=== PATIENT | female | born 1945 | race Caucasian/White ===

== ENCOUNTER 2018-01-17 13:33 | Emergency (ER) ==
[2018-01-17 13:37] VITALS: BP 176/76; TEMP 99.3; BMI 30.8
--- NOTE | 2018-01-17 16:05 | ED.PDOC ---
General ED Provider: Dr. WOODY BARNEY Chief Complaint: Weakness Stated Complaint: Weakness and nausea; Onset after eatting maldivian food Tuesday with Shrimp Time Seen by Physician: 14:00 Mode of Arrival: Walk-In Information Source: Patient Exam Limitations: No limitations Primary Care Provider: KENYATTA POLLARD Nursing and Triage Documentation Reviewed and Agree: Yes Reviewed sepsis parameters & appropriate labs ordered?: Yes System Inflammatory Response Syndrome: Not Applicable Sepsis Protocol: For patient's 13 years and over: Temp is 96.8 and below OR 101 and greater Pulse >90 BPM Resp >20/minute Acutely Altered Mental Status Are patient's symptoms suggestive of a new infection, such as: -Pneumonia -Skin, Soft Tissue -Endocarditis -UTI -Bone, Joint Infection -Implantable Device -Acute Abdominal Infection -Wound Infection -Meningitis -Blood Stream Catheter Infection -Unknown System Inflammatory Response Syndrome: Not Applicable Review of Systems - Review Of Systems Constitutional: Reports: No symptoms, Chills, Malaise, Weakness, Loss of appetite Eyes: Reports: No symptoms Ears, Nose, Mouth, Throat: Reports: No symptoms Respiratory: Reports: No symptoms Cardiac: Reports: No symptoms GI: Reports: No symptoms, Nausea (stomach queasiness once symptoms started) : Reports: No symptoms, Frequency, Urgency Musculoskeletal: Reports: No symptoms Skin: Reports: No symptoms Neurological: Reports: No symptoms Endocrine: Reports: No symptoms Hematologic/Lymphatic: Reports: No symptoms All Other Systems: Reviewed and Negative Past Medical History - Past Medical History Previously Healthy: Yes Endocrine: Reports: None Cardiovascular: Reports: None, Other (hyperlipidemia) Respiratory: Reports: None Hematological: Reports: None Gastrointestinal: Reports: None Genitourinary: Reports: None Neuro/Psych: Reports: None Musculoskeletal: Reports: None Cancer: Reports: None Last Menstrual Period: n/a - Surgical History General Surgical History: Reports: None - Family History Family History: Reports: None - Social History Smoking Status: Never smoker Hx Substance Use: No Alcohol Screening: Occasionally Physical Exam - Physical Exam Appearance: Ill-appearing, No pain distress, Well-nourished Ill-appearing: Mild Pain Distress: None Eyes: BRYCE, EOMI, Conjunctiva clear ENT: Ears normal, Nose normal, Oropharynx normal Respiratory: Airway patent, Breath sounds clear, Breath sounds equal, Respirations nonlabored Cardiovascular: RRR, Pulses normal, No rub, No murmur GI/: Soft, Nontender, No masses, Bowel sounds normal, No Organomegaly Musculoskeletal: Normal strength, ROM intact, No edema, No calf tenderness Skin: Warm, Dry, Normal color Neurological: Sensation intact, Motor intact, Reflexes intact, Cranial nerves intact, Alert, Oriented Psychiatric: Affect appropriate, Mood appropriate Critical Care Note - Critical Care Note Total Time (mins): 0 Course - Course Hematology/Chemistry: 01/17/18 15:19 01/17/18 15:19 Orders, Labs, Meds: Lab Review 01/17/18 01/17/18 01/17/18 14:58 15:19 15:19 WBC 15.47 H RBC 4.57 Hgb 11.1 L Hct 35.4 L MCV 77.5 L MCH 24.3 L MCHC 31.4 L RDW Coeff of Horace 16.6 H Plt Count 243 Immature Gran % (Auto) 0.4 Neut % (Auto) 84.1 Lymph % (Auto) 8.6 L [place] % (Auto) 6.8 Eos % (Auto) 0.0 Baso % (Auto) 0.1 Immature Gran # (Auto) 0.1 Neut # (Auto) 13.0 H Lymph # (Auto) 1.3 [place] # (Auto) 1.1 Eos # (Auto) 0.0 Baso # (Auto) 0.0 Sodium 138 Potassium 4.6 Chloride 101 Carbon Dioxide 26 Anion Gap 15.6 BUN 15 Creatinine 1.20 Estimated GFR (MDRD) 44.00 BUN/Creatinine Ratio 12.50 Glucose 115 Calcium 9.4 Total Bilirubin 1.0 AST 17 ALT 12 Alkaline Phosphatase 105 Troponin I < 0.0100 Total Protein 7.3 Albumin 3.2 L Globulin 4.1 Albumin/Globulin Ratio 0.78 Urine Color Yellow Urine Clarity Slightly Urine pH 5.5 Ur Specific [place] <=1.005 Urine Protein 1+ Urine Glucose (UA) Negative Urine Ketones Negative Urine Blood 2+ Urine Nitrite Negative Urine Bilirubin Negative Urine Urobilinogen 0.2 Ur Leukocyte Esterase 2+ Urine Microscopic RBC 5-10 Urine Microscopic WBC 30-50 Ur Squamous Epith Cells 2-5 Urine Bacteria 1+ Influ A Molecular Assay Influ B Molecular Assay 01/17/18 15:30 WBC RBC Hgb Hct MCV MCH MCHC RDW Coeff of [place] Plt Count Immature Gran % (Auto) Neut % (Auto) Lymph % (Auto) [place] % (Auto) Eos % (Auto) Baso % (Auto) Immature Gran # (Auto) Neut # (Auto) Lymph # (Auto) [place] # (Auto) Eos # (Auto) Baso # (Auto) Sodium Potassium Chloride Carbon Dioxide Anion Gap BUN Creatinine Estimated GFR (MDRD) BUN/Creatinine Ratio Glucose Calcium Total Bilirubin AST ALT Alkaline Phosphatase Troponin I Total Protein Albumin Globulin Albumin/Globulin Ratio Urine Color Urine Clarity Urine pH Ur Specific [place] Urine Protein Urine Glucose (UA) Urine Ketones Urine Blood Urine Nitrite Urine Bilirubin Urine Urobilinogen Ur Leukocyte Esterase Urine Microscopic RBC Urine Microscopic WBC Ur Squamous Epith Cells Urine Bacteria Influ A Molecular Assay Negative by naat Influ B Molecular Assay Negative by naat Orders Category Date Time Status EKG-(ED ONLY) Stat CARDIO 01/17/18 15:09 Completed CBC W/ AUTO DIFF Stat LAB 01/17/18 15:19 Completed CMP [COMPREHENSIVE METABOLIC PANEL] Stat LAB 01/17/18 15:19 Completed FLU A & B MOLECULAR [FLU A/B MOLECULAR] Stat LAB 01/17/18 15:30 Completed TROPONIN I Stat LAB 01/17/18 15:19 Completed UA [URINALYSIS C & S IF INDICATED] Stat LAB 01/17/18 14:58 Completed URINE CULTURE Stat LAB 01/17/18 15:48 Received Vital Signs: Temp Pulse Resp BP Pulse Ox 01/17/18 13:33 99.3 F 98 H 16 176/76 H 94 L Departure - Departure Time of Disposition: 16:35 Disposition: HOME SELF-CARE Discharge Problem: Weakness, UTI (urinary tract infection), Microcytic hypochromic anemia Instructions: Anemia (ED), Urinary Tract Infection in Women (DC) Condition: Fair Pt referred to PMD for follow-up: Yes (1 week) IPMP verified?: No Additional Instructions: Increase iron rich foods in diet Take daily Iron tablet Feosol Finish antibiotics See PCP in 1 week - 10 days Prescriptions: Nitrofurantoin Monohyd/M-Cryst [Macrobid 100 mg Capsule] 100 mg PO BID #20 capsule Allergies/Adverse Reactions: Allergies No Known Allergies Allergy (Verified 01/17/18 13:37) Home Medications: Ambulatory Orders Aspirin [Aspirin EC] 1 tab PO DAILY 04/01/14 Calcium Carb/Vitamin D3/Vit K1 [Calcium + D Soft Chewable Tab] 1 tab PO DAILY Hydrocodone/Acetaminophen [Lortab 10-325 mg Tablet] 1 tab PO TID 05/10/14 Lansoprazole [Prevacid] 1 tab PO DAILY 05/10/14 Nitrofurantoin Monohyd/M-Cryst [Macrobid 100 mg Capsule] 100 mg PO BID #20 capsule 01/17/18 Simvastatin 40 mg PO BEDTIME 01/17/18 Disposition Discussed With: Patient
== END 2018-01-17 16:59 | disposition home or self-care (01) ==
LOC: ED 13:33
DX: N39.0 Urinary tract infection, site not specified (principal); R53.1 Weakness; D50.9 Iron deficiency anemia, unspecified; E78.5 Hyperlipidemia, unspecified; R53.81 Other malaise; Z79.899 Other long term (current) drug therapy
CPT/HCPCS: 36415; 80053; 81001; 84484; 85025; 87086; 87186; 87502; 93005; 93010; 99283

== ENCOUNTER 2018-01-19 08:29 | Inpatient (IN) ==
[2018-01-19] MEDS ORDERED: PROTONIX IV IVP STA (10:15)
[2018-01-19] MEDS ORDERED: SODIUM CHLORIDE 1,000 ML IV STA (10:15)
[2018-01-19] MEDS ORDERED: ZOFRAN 4 MG/2 ML IVP STA (10:16)
--- NOTE | 2018-01-19 10:19 | ED.PDOC ---
General ED Provider: Dr. WOODY BARNEY Chief Complaint: Weakness Stated Complaint: 4 day history weakness, poor appetitie.sTARTED AFTER EATING PASTA WITH SHRIMP. In the ER Tuesday dx UTI, Rx antibiotic. c/s positive if Ecoli sens to macrobid. Now has developed water diarrea Time Seen by Physician: 08:45 Mode of Arrival: Walk-In Information Source: Patient Exam Limitations: No limitations Primary Care Provider: KENYATTA POLLARD Seen Within Last 72 Hours for Same Complaint By: ED Nursing and Triage Documentation Reviewed and Agree: Yes Reviewed sepsis parameters & appropriate labs ordered?: Yes System Inflammatory Response Syndrome: Not Applicable Sepsis Protocol: For patient's 13 years and over: Temp is 96.8 and below OR 101 and greater Pulse >90 BPM Resp >20/minute Acutely Altered Mental Status Are patient's symptoms suggestive of a new infection, such as: -Pneumonia -Skin, Soft Tissue -Endocarditis -UTI -Bone, Joint Infection -Implantable Device -Acute Abdominal Infection -Wound Infection -Meningitis -Blood Stream Catheter Infection -Unknown System Inflammatory Response Syndrome: Not Applicable Review of Systems - Review Of Systems Constitutional: Reports: No symptoms Eyes: Reports: No symptoms Ears, Nose, Mouth, Throat: Reports: No symptoms Respiratory: Reports: No symptoms Cardiac: Reports: No symptoms GI: Reports: No symptoms, Diarrhea, Difficulty swallowing, Nausea, Poor appetite , Poor fluid intake : Reports: No symptoms, Other (pos urine culture E coli) Musculoskeletal: Reports: No symptoms Skin: Reports: No symptoms Neurological: Reports: No symptoms Endocrine: Reports: No symptoms Hematologic/Lymphatic: Reports: No symptoms All Other Systems: Reviewed and Negative Past Medical History - Past Medical History Previously Healthy: Yes Endocrine: Reports: None Cardiovascular: Reports: None, Other (hyperlipidemia) Respiratory: Reports: None Hematological: Reports: None Gastrointestinal: Reports: None, Other (hx feeling ill past 4 days since eating pasta with shrimp that smelled bad) Genitourinary: Reports: None, UTI Neuro/Psych: Reports: None Musculoskeletal: Reports: None Cancer: Reports: None Last Menstrual Period: NA - Surgical History General Surgical History: Reports: None - Family History Family History: Reports: None - Social History Smoking Status: Never smoker Hx Substance Use: No Alcohol Screening: Occasionally Physical Exam - Physical Exam Appearance: Ill-appearing Ill-appearing: Mild Pain Distress: None Eyes: BRYCE, EOMI, Conjunctiva clear ENT: Ears normal, Nose normal, Oropharynx normal Respiratory: Airway patent, Breath sounds clear, Breath sounds equal, Respirations nonlabored Cardiovascular: RRR, Pulses normal, No rub, No murmur GI/: Soft, No Organomegaly, Tender, Bowel sounds hyperactive Musculoskeletal: Normal strength, ROM intact, No edema, No calf tenderness Skin: Warm, Dry, Normal color Neurological: Sensation intact, Motor intact, Reflexes intact, Cranial nerves intact, Alert, Oriented Psychiatric: Affect appropriate, Mood appropriate Re-Evaluation - Re-Evaluation Time of Re-Evaluation: 12:10 Status: Unchanged Vital Signs Stable: Yes Pain Level: none Appearance: NAD Skin: Warm and Dry Neuro: Alert and Oriented X3 CV: RRR Additional Comments: State just feels bad; Has poor appetite and can not eat normal amout Physician Notification - Case Discussed Physician Notified: Dr Pollard-discussed case and agreed with need to admit Time of Notification: 13:30 Critical Care Note - Critical Care Note Total Time (mins): 0 Course - Course Hematology/Chemistry: 01/23/18 04:45 01/23/18 04:45 Orders, Labs, Meds: Lab Review 01/19/18 01/19/18 01/19/18 10:25 10:27 10:27 WBC 8.21 D RBC 4.27 Hgb 10.2 L Hct 32.7 L MCV 76.6 L MCH 23.9 L MCHC 31.2 L RDW Coeff of Horace 16.6 H Plt Count 199 Immature Gran % (Auto) 0.4 Neut % (Auto) 80.0 Lymph % (Auto) 10.8 [place] % (Auto) 8.6 Eos % (Auto) 0.0 Baso % (Auto) 0.2 Immature Gran # (Auto) 0.0 Neut # (Auto) 6.6 Lymph # (Auto) 0.9 [place] # (Auto) 0.7 Eos # (Auto) 0.0 Baso # (Auto) 0.0 Sodium 137 Potassium 3.6 Chloride 101 Carbon Dioxide 25 Anion Gap 14.6 BUN 16 Creatinine 1.11 Estimated GFR (MDRD) 48.00 BUN/Creatinine Ratio 14.41 Glucose 103 Calcium 8.8 Iron 15 L TIBC 261 % Saturation 6 Unsat Iron Binding 246 Transferrin Total Bilirubin 0.7 AST 26 ALT 16 Alkaline Phosphatase 82 Total Protein 6.3 Albumin 2.6 L Globulin 3.7 Albumin/Globulin Ratio 0.70 TSH Free T4 Urine Color Urine Clarity Urine pH Ur Specific [place] Urine Protein Urine Glucose (UA) Urine Ketones Urine Blood Urine Nitrite Urine Bilirubin Urine Urobilinogen Ur Leukocyte Esterase Urine Microscopic RBC Urine Microscopic WBC Ur Squamous Epith Cells Urine Bacteria Stl Occult Blood (IFOB) Stool Occult Blood #2 Stool Occult Blood #3 Hepatitis A IgM Ab Hep Bs Antigen Hep B Core IgM Ab Hep C Ab Signal/Cutoff 01/19/18 01/19/18 01/19/18 10:27 10:27 10:27 WBC RBC Hgb Hct MCV MCH MCHC RDW Coeff of Horace Plt Count Immature Gran % (Auto) Neut % (Auto) Lymph % (Auto) [place] % (Auto) Eos % (Auto) Baso % (Auto) Immature Gran # (Auto) Neut # (Auto) Lymph # (Auto) [place] # (Auto) Eos # (Auto) Baso # (Auto) Sodium Potassium Chloride Carbon Dioxide Anion Gap BUN Creatinine Estimated GFR (MDRD) BUN/Creatinine Ratio Glucose Calcium Iron TIBC % Saturation Unsat Iron Binding Transferrin 220 Total Bilirubin AST ALT Alkaline Phosphatase Total Protein Albumin Globulin Albumin/Globulin Ratio TSH 0.076 L Free T4 1.18 H Urine Color Urine Clarity Urine pH Ur Specific [place] Urine Protein Urine Glucose (UA) Urine Ketones Urine Blood Urine Nitrite Urine Bilirubin Urine Urobilinogen Ur Leukocyte Esterase Urine Microscopic RBC Urine Microscopic WBC Ur Squamous Epith Cells Urine Bacteria Stl Occult Blood (IFOB) Stool Occult Blood #2 Stool Occult Blood #3 Hepatitis A IgM Ab Negative Hep Bs Antigen Negative Hep B Core IgM Ab Negative Hep C Ab Signal/Cutoff < 0.1 01/19/18 01/19/18 10:55 10:55 WBC RBC Hgb Hct MCV MCH MCHC RDW Coeff of Horace Plt Count Immature Gran % (Auto) Neut % (Auto) Lymph % (Auto) [place] % (Auto) Eos % (Auto) Baso % (Auto) Immature Gran # (Auto) Neut # (Auto) Lymph # (Auto) [place] # (Auto) Eos # (Auto) Baso # (Auto) Sodium Potassium Chloride Carbon Dioxide Anion Gap BUN Creatinine Estimated GFR (MDRD) BUN/Creatinine Ratio Glucose Calcium Iron TIBC % Saturation Unsat Iron Binding Transferrin Total Bilirubin AST ALT Alkaline Phosphatase Total Protein Albumin Globulin Albumin/Globulin Ratio TSH Free T4 Urine Color Yellow Urine Clarity Clear Urine pH 5.5 Ur Specific [place] 1.015 Urine Protein 2+ Urine Glucose (UA) Negative Urine Ketones 1+ Urine Blood 2+ Urine Nitrite Negative Urine Bilirubin Negative Urine Urobilinogen 1.0 Ur Leukocyte Esterase Trace Urine Microscopic RBC 5-10 Urine Microscopic WBC 10-20 Ur Squamous Epith Cells Not present Urine Bacteria 4+ Stl Occult Blood (IFOB) Negative Stool Occult Blood #2 No specimen received Stool Occult Blood #3 No specimen received Hepatitis A IgM Ab Hep Bs Antigen Hep B Core IgM Ab Hep C Ab Signal/Cutoff Orders Category Date Time Status ADMIT PATIENT INPATIENT .TO MEDSURG (MONITORED BED) ADMISSION 01/19/18 12: 34 Active EKG-(ED ONLY) Stat CARDIO 01/19/18 10:13 Completed ACTIVITY .BR with BRP CARE 01/19/18 12:31 Completed ACTIVITY .Early Mobilization for VTE Prevention CARE 01/19/18 12:31 Completed INTAKE & OUTPUT Q8HR CARE 01/19/18 12:30 Completed INTAKE & OUTPUT Q8HR CARE 01/19/18 12:31 Completed INTAKE & OUTPUT Q8HR CARE 01/19/18 12:38 Completed NPO REMINDER: IMAGING ONCE CARE 01/19/18 12:29 Completed TELEMETRY MONITORING TELE CARE 01/19/18 12:35 Completed VITAL SIGNS Q4HR CARE 01/19/18 12:31 Active SOFT DIET DIETARY 01/19/18 Lunch Completed IV [ED IV/MEDIPORT/POWERPORT] .ONCE EMERGENCY 01/20/18 06:00 Active CBC W/ AUTO DIFF DAILY@0600 LAB 01/20/18 04:30 Completed CBC W/ AUTO DIFF DAILY@0600 LAB 01/21/18 04:30 Completed CBC W/ AUTO DIFF Stat LAB 01/19/18 10:27 Completed CMP [COMPREHENSIVE METABOLIC PANEL] Stat LAB 01/19/18 10:27 Completed COMPREHENSIVE METABOLIC PANEL DAILY@0600 LAB 01/20/18 04:30 Completed COMPREHENSIVE METABOLIC PANEL DAILY@0600 LAB 01/21/18 04:30 Completed FREE T4 (FREE THYROXINE) Stat LAB 01/19/18 10:27 Completed HEPATITIS PANEL, ACUTE Stat LAB 01/19/18 10:27 Completed IRON AND TIBC Stat LAB 01/19/18 10:25 Completed OCCULT BLOOD, STOOL LAB 01/20/18 11:30 Completed OCCULT BLOOD, STOOL Stat LAB 01/19/18 10:55 Completed THYROID STIMULATING HORMONE Stat LAB 01/19/18 10:27 Completed TRANSFERRIN Stat LAB 01/19/18 10:27 Completed UA [URINALYSIS C & S IF INDICATED] Stat LAB 01/19/18 10:55 Completed URINE CULTURE Routine LAB 01/19/18 10:55 Completed 0.9 % Sodium Chloride [Saline Flush] MEDS 01/19/18 10:13 Discontinued 1 syr IVF PRN PRN Ceftriaxone Sodium [Rocephin] 1 gm MEDS 01/19/18 13:00 Discontinued 0.9 % Sodium Chloride [Sodium Chloride] 50 ml IV DAILY Enoxaparin Sodium [Lovenox] MEDS 01/19/18 13:00 Discontinued 40 mg SUBCUT DAILY Ondansetron HCl/Pf [Zofran 4 mg/2 ml] MEDS 01/19/18 10:16 Discontinued 4 mg IVP ONCE STA Pantoprazole Sodium [Protonix IV] MEDS 01/19/18 10:15 Discontinued 40 mg IVP ONCE STA Sodium Chloride 0.9% [Sodium Chloride] 1,000 ml MEDS 01/19/18 13:00 Discontinued IV 75 mls/hr Sodium Chloride 0.9% [Sodium Chloride] 1,000 ml MEDS 01/19/18 10:15 Discontinued IV BOLUS RESUSCITATION STATUS Routine OTHERS 01/19/18 12:29 Completed RESUSCITATION STATUS Routine OTHERS 01/19/18 12:31 Completed RESUSCITATION STATUS Routine OTHERS 01/19/18 12:[address] ABDOMEN/PELVIS W/WO CONTRAS Stat RADS 01/19/18 12:26 Completed OT CONSULTATION Routine THERAPIES 01/19/18 11:35 Completed PT CONSULT Routine THERAPIES 01/19/18 16:03 Completed Medications Discontinued Medications Generic Name Dose Route Start Last Admin Trade Name Freq PRN Reason Stop Dose Admin Apixaban 5 mg 01/22/18 12:00 01/23/18 12:26 Eliquis PO 5 mg BID LACI Administration Ceftriaxone Sodium 1 gm 01/21/18 10:00 01/22/18 09:03 Rocephin IM 1 gm DAILY LACI Administration Ceftriaxone Sodium 1 gm 01/22/18 09:30 01/23/18 08:20 Rocephin IM 1 gm DAILY LACI Administration Enoxaparin Sodium 40 mg 01/19/18 13:00 01/22/18 09:05 Lovenox SUBCUT 40 mg DAILY LACI Administration Sodium Chloride 1,000 mls @ 500 mls/hr 01/19/18 10:15 01/19/18 10:48 Sodium Chloride IV 01/19/18 12:14 500 mls/hr BOLUS STA Administration Sodium Chloride 1,000 mls @ 75 mls/hr 01/19/18 13:00 01/21/18 07:19 Sodium Chloride IV 75 mls/hr .[id number] LACI Administration Ceftriaxone Sodium 1 gm/ 50 mls @ 75 mls/hr 01/19/18 13:00 01/22/18 09:04 Sodium Chloride IV Not Given DAILY LACI Lidocaine HCl 2.1 ml 01/21/18 09:45 01/21/18 10:24 Lidocaine Hcl 1% Sdv IM 01/21/18 09:46 2.1 ml ONCE STA Administration Lidocaine HCl 2.1 ml 01/22/18 09:16 01/23/18 08:21 Lidocaine Hcl 1% Sdv IM 2.1 ml DAILY LACI Administration Ondansetron HCl 4 mg 01/19/18 10:16 01/19/18 10:49 Zofran 4 Mg/2 Ml IVP 01/19/18 10:17 4 mg ONCE STA Administration Pantoprazole Sodium 40 mg 01/19/18 10:15 01/19/18 10:53 Protonix Iv IVP 01/19/18 10:16 40 mg ONCE STA Administration Sodium Chloride 1 syr 01/19/18 10:13 01/19/18 10:48 Saline Flush IVF 1 syr PRN PRN Administration To flush IV Vital Signs: Temp Pulse Resp BP Pulse Ox 01/19/18 08:33 100.0 F H 95 H 18 150/81 H 94 L Departure - Departure Time of Disposition: 12:35 Disposition: ADMITTED INPATIENT Discharge Problem: UTI (urinary tract infection), bacterial, Anorexia, Anemia, iron deficiency, Diarrhea Condition: Good Pt referred to PMD for follow-up: Yes (Dr Pollard) IPMP verified?: No Allergies/Adverse Reactions: Allergies No Known Allergies Allergy (Verified 01/19/18 08:32) Home Medications: Ambulatory Orders Aspirin [Aspirin EC] 1 tab PO DAILY 04/01/14 Calcium Carb/Vitamin D3/Vit K1 [Calcium + D Soft Chewable Tab] 1 tab PO DAILY Hydrocodone/Acetaminophen [Lortab 10-325 mg Tablet] 1 tab PO TID 05/10/14 Simvastatin 40 mg PO BEDTIME 01/17/18 Iron,Carbonyl [Feosol] 45 mg PO DAILY 01/19/18 Apixaban [Eliquis] 5 mg PO BID #60 tablet 01/23/18 Cephalexin [Keflex] 500 mg PO Q8HR #21 capsule 01/23/18 Pantoprazole Sodium [Protonix] 40 mg PO QDAC #30 tablet. 01/23/18 Disposition Discussed With: Patient, Family (Discussed with Dr Pollard requests patient to be admitted; IV antibiotics ) GI Complaint Exam - Vomiting/Diarrhea Complaint/Exam Onset/Duration: 1wk Episodes of Vomiting over last 24 Hours: 0 (Nausea, dyspepsia) Episodes of Diarrhea Over Last 24 Hours: 5 (dark, thick,pasty, malodorous) Initial Severity: Moderate Current Severity: Moderate Character of Diarrhea: Reports: Watery, Malodorous Aggravating: Reports: Liquids Alleviating: Reports: None Associated Signs and Symptoms: Reports: Dizziness, Light-headedness, Cramping Related History: Reports: Recent antibiotics Last Oral Intake: today Last Bowel Movement: 1 hr ago Related Surgical History: Reports: None Abdominal Findings: Present: Abdominal distention (tenderness) Differential Diagnoses: Gastritis, UTI, Other (GI Bleeding)
[2018-01-19] MEDS ORDERED: ROCEPHIN ONE (13:11)
[2018-01-19] MEDS: ROCEPHIN 1 GM in SODIUM CHLORIDE 50 ML IV SCH (13:27)
[2018-01-19] MEDS: LOVENOX SUBCUT SCH (13:27)
[2018-01-19] MEDS: SODIUM CHLORIDE 1,000 ML IV SCH (13:34)
[2018-01-19 14:33] VITALS: BMI 31.0
--- NOTE | 2018-01-19 15:29 | CT ---
Exam: CT abdomen pelvis without intravenous contrast followed by CT abdomen pelvis with intravenous c ontrast. Comparison: None available. Reason for exam: Fatigue lack of appetite. FINDINGS: There is a large hiatal hernia seen within the thorax with the stomach and pancreas seen w ithin the thorax. No pleural effusion in the partially imaged lung bases. The liver is lower in attenuation than the spleen. A stone is seen within the dependent portion of the gallbladder without obvious wall thickening. The adrenal glands and splenic parenchyma appear grossly unremarkable. No hydronephrosis or hydroureter within the imaged portions of the [id number] collecting systems. Evaluation of the pelvic structures is limited by metallic streak artifact from a left hip arthropla sty. No focal small bowel dilatation is seen. The appendix is unremarkable. Diverticular disease is seen in the rectosigmoid without obvious surrounding inflammatory change. The bladder is incompletely evaluated secondary to streak artifact. Degenerative disease is seen in the lumbosacral spine with vacuum disc phenomenon. No suspicious fariba earing osteoblastic or osteolytic lesions. Impression: 1. Large hiatal hernia with the stomach and pancreas seen within the thoracic cavity. 2. No acute inflammatory findings are seen within the abdomen . 3. Evaluation of the pelvis is limited by streak artifact from a left hip arthroplasty. 4. Cholelithiasis without evidence of cholecystitis. Report faxed at [id number] hours on 01/19/2018
[2018-01-20] MEDS: SODIUM CHLORIDE 1,000 ML IV SCH ×2 (02:43→17:50)
--- NOTE | 2018-01-20 09:23 | PCM.PROG ---
Attending Provider: ATTENDING PROVIDER: Dr. KENYATTA POLLARD This patient is seen with Rosa Isela Aquino, Nurse Practitioner. DATE OF SERVICE: 01/20/18 SUBJECTIVE: This 72 year old WHITE/ F was hospitalized 01/19/18. The patient is sitting in chair, alert. Denies any pain. The patient is scheduled for upper GI today. She is feeling some better, no fever. REVIEW OF SYSTEMS: CONSTITUTIONAL: Fatigue and weakness. No night sweats. No malaise, lethargy. No fever or chills. HEENT: Eyes: No visual changes. No eye pain. No eye discharge. ENT: No runny nose. No epistaxis. No sinus pain. No odynophagia. No congestion. RESPIRATORY: No cough, no congestion. No hemoptysis. No shortness of breath. CARDIOVASCULAR: No angina symptoms. No CHF symptoms. No atypical chest pain for CAD. No palpitations. No orthopnea.. GASTROINTESTINAL: No abdominal pain. No nausea or vomiting. No diarrhea or constipation. No hematemesis. No hematochezia. GENITOURINARY: No urgency. No frequency. No dysuria. No hematuria. No obstructive symptoms. No discharge. No pain. No significant abnormal bleeding. MUSCULOSKELETAL: No musculoskeletal pain; no joint swelling. NEUROLOGICAL: Awake, alert, oriented to time, place and person. No headache. No neck pain. No syncope. No seizures. No dizziness. PSYCHIATRIC: Not anxious. No depression. No suicidal thoughts. No homicidal thoughts. SKIN: No rash. No lesions. No wounds. ENDOCRINE: No unexplained weight loss. No weight gain. HEMATOLOGIC/LYMPHATIC: No anemia. No purpura. No petechiae. No prolonged or excessive bleeding. No palpable lymph nodes. PHYSICAL EXAMINATION: GENERAL: The patient is awake, alert and oriented, sitting in chair in no distress. VITAL SIGNS: Temperature 98.7 F, Pulse 72, Respiratory Rate 18, BP 125/73, Pulse Ox 96% HEENT: Head normocephalic, atraumatic. Eyes: Extraocular muscles are intact. Pupils are equal, round and reactive to light and accommodation. Ears: No lesions. Nose appeared normal. Throat: No exudate or erythema. NECK: Supple. No JVD, no carotid bruit. No lymphadenopathy or thyromegaly. LUNGS: Clear to auscultation. Percussion note normal. Chest symmetrical. HEART: S1, S2, no S3. No murmurs. No cyanosis or clubbing. No ascites. Pulses: Dorsalis pedis and posterior tibial pulses +1 to +2 both sides. ABDOMEN: Soft. Non-tender. Bowel sounds active. No CVA tenderness. No mass felt. EXTREMITIES: No edema. Full range of motion of all extremities, equal. NEUROLOGIC: No focal deficit. Cranial nerves II through XII are grossly intact. No headache, no double vision or headache. SKIN: Not dry. Intact. Turgor-normal. LYMPHATIC: No palpable lymph nodes/no lymphedema. MUSCULOSKELETAL: Normal joints with no swelling. Muscle tone is normal. LAB REVIEW: 01/20/18 04:30 01/20/18 04:30 01/20/18 04:30: Sodium 139, Potassium 3.8, Chloride 106, Carbon Dioxide 24, Anion Gap 12.8, BUN 11, Creatinine 0.93, Estimated GFR (MDRD) 59.00, BUN/ Creatinine Ratio 11.82, Glucose 91, Calcium 8.4, Total Bilirubin 0.4, AST 34, ALT 23, Alkaline Phosphatase 73, Total Protein 5.6 L, Albumin 2.3 L, Globulin 3.3, Albumin/Globulin Ratio 0.70 01/20/18 04:30: WBC 6.78, RBC 4.06 L, Hgb 9.7 L, Hct 31.4 L, MCV 77.3 L, MCH 23.9 L, MCHC 30.9 L, RDW Coeff of Horace 16.5 H, Plt Count 173, Immature Gran % ( Auto) 0.3, Neut % (Auto) 67.2, Lymph % (Auto) 16.5, [place] % (Auto) 14.7 H, Eos % (Auto) 0.6, Baso % (Auto) 0.7, Immature Gran # (Auto) 0.0, Neut # (Auto) 4.6, Lymph # (Auto) 1.1, [place] # (Auto) 1.0, Eos # (Auto) 0.0, Baso # (Auto) 0.1 01/19/18 10:55: Stl Occult Blood (IFOB) Negative, Stool Occult Blood #2 No specimen received, Stool Occult Blood #3 No specimen received 01/19/18 10:55: Urine Color Yellow, Urine Clarity Clear, Urine pH 5.5, Ur Specific [place] 1.015, Urine Protein 2+, Urine Glucose (UA) Negative, Urine Ketones 1+, Urine Blood 2+, Urine Nitrite Negative, Urine Bilirubin Negative, Urine Urobilinogen 1.0, Ur Leukocyte Esterase Trace, Urine Microscopic RBC 5-10 , Urine Microscopic WBC 10-20, Ur Squamous Epith Cells Not present, Urine Bacteria 4+ 01/19/18 10:27: TSH 0.076 L, Free T4 1.18 H 01/19/18 10:27: Hepatitis A IgM Ab Negative, Hep Bs Antigen Negative, Hep B Core IgM Ab Negative, Hep C Ab Signal/Cutoff < 0.1 01/19/18 10:27: Transferrin 220 01/19/18 10:27: Sodium 137, Potassium 3.6, Chloride 101, Carbon Dioxide 25, Anion Gap 14.6, BUN 16, Creatinine 1.11, Estimated GFR (MDRD) 48.00, BUN/ Creatinine Ratio 14.41, Glucose 103, Calcium 8.8, Total Bilirubin 0.7, AST 26, ALT 16, Alkaline Phosphatase 82, Total Protein 6.3, Albumin 2.6 L, Globulin 3.7 , Albumin/Globulin Ratio 0.70 01/19/18 10:27: WBC 8.21 D, RBC 4.27, Hgb 10.2 L, Hct 32.7 L, MCV 76.6 L, MCH 23.9 L, MCHC 31.2 L, RDW Coeff of Horace 16.6 H, Plt Count 199, Immature Gran % ( Auto) 0.4, Neut % (Auto) 80.0, Lymph % (Auto) 10.8, [place] % (Auto) 8.6, Eos % ( Auto) 0.0, Baso % (Auto) 0.2, Immature Gran # (Auto) 0.0, Neut # (Auto) 6.6, Lymph # (Auto) 0.9, [place] # (Auto) 0.7, Eos # (Auto) 0.0, Baso # (Auto) 0.0 01/19/18 10:25: Iron 15 L, TIBC 261, % Saturation 6, Unsat Iron Binding 246 ASSESSMENT: 1. ACUTE UTI 2. ANEMIA 3. FATIGUE/WEAKNESS PLAN: 1. CONTINUE IV ANTIBIOTIC 2. UPPER GI TODAY Plan and coordination of the patient's care discussed in the presence of Title Supervisor and nurse. CONDITION: Stable SCRIBED BY: PARVEEN CAMPOS Pm Technician scribed while in presence of service performed by Dr. Pollard/Rosa Isela Aquino APRN on 01/20/18 ([id number])
[2018-01-20] MEDS: LOVENOX SUBCUT SCH (10:50)
[2018-01-20] MEDS: ROCEPHIN 1 GM in SODIUM CHLORIDE 50 ML IV SCH (10:50)
--- NOTE | 2018-01-20 14:14 | HP ---
DATE OF SERVICE: 01/19/18 HISTORY OF PRESENT ILLNESS: This is a 72-year-old white female who has a four day history of weakness and poor appetite. She was seen in the emergency room about two days ago and was diagnosed with a urinary tract infection. She was given a prescription for Macrobid. The urine sensitivity came back and is sensitive to Macrobid however she still reports feeling weak, having dysuria, low grade fever and nauseated. 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 She sees Dr. 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 Carbajal Last mammogram 03/18 - the patient declined a mammogram this year REVIEW OF SYSTEMS: CONSTITUTIONAL: Weakness. No night sweats. No fatigue, malaise, lethargy. Positive for fever and chills. HEENT: Eyes: No visual changes. No eye pain. No eye discharge. ENT: No runny nose. No epistaxis. No sinus pain. No sore throat. No odynophagia. No ear pain. No congestion. RESPIRATORY: No cough, no congestion. No hemoptysis. No shortness of breath. CARDIOVASCULAR: No angina symptoms. No CHF symptoms. No atypical chest pain for CAD. No palpitations. No orthopnea. GASTROINTESTINAL: Nausea. Decreased appetite. No abdominal pain. No vomiting. No diarrhea or constipation. No hematemesis. No hematochezia. GENITOURINARY: Dysuria. No urgency. No frequency. No hematuria. No obstructive symptoms. No discharge. No pain. No significant abnormal bleeding. MUSCULOSKELETAL: No musculoskeletal pain. No joint swelling. No arthritis. NEUROLOGICAL: No headache. No neck pain. No syncope. No seizures. No dizziness. PSYCHIATRIC: Not anxious. No depression. No suicidal thoughts. No homicidal thoughts. SKIN: No rash. No lesions. No wounds. ENDOCRINE: No unexplained weight loss. No weight gain. HEMATOLOGIC/LYMPHATIC: No anemia. No purpura. No petechiae. No prolonged or excessive bleeding. No palpable lymph nodes. PERSONAL/FAMILY/SOCIAL HISTORY: The patient is . She lives at home with her . Nonsmoker. No alcohol or ilicit drug use. MEDICATIONS: (Home) 1. Aspirin 81 mg p.o. daily 2. Prevacid 30 mg one tablet p.o. daily 3. Hydrocodone/Acetaminophen one tab p.o. t.i.d. 4. Calcium Carb/Vitamin D3/Vitamin K1 one tab p.o. daily 5. Simvastatin 40 mg p.o. bedtime 6. Nitrofurantoin (Macrobid) 100 mg p.o. b.i.d. 7. Iron 45 mg p.o. daily ALLERGIES: NKDA PHYSICAL EXAMINATION: VITAL SIGNS: Temperature 100, heart rate 95, respirations 18, BP 150/81, oxygen 94%. HEENT: Head normocephalic, atraumatic. Eyes: Extraocular muscles are intact. Pupils are equal, round and reactive to light and accommodation. Ears: No lesions. Nose appeared normal. Throat: No exudate or erythema. NECK: Supple. No JVD, no carotid bruit. No lymphadenopathy or thyromegaly. LUNGS: Clear to auscultation. Percussion note normal. Chest symmetrical. HEART: S1, S2, no S3. No murmurs. No cyanosis or clubbing. No ascites. Pulses: Dorsalis pedis and posterior tibial pulses +1 to +2 both sides. ABDOMEN: Soft. Nontender. Bowel sounds active. No CVA tenderness. No mass felt. EXTREMITIES: No edema. Full range of motion of all extremities, equal. NEUROLOGIC: No focal deficit. Cranial nerves II through XII are grossly intact. No headache, no double vision or headache. SKIN: Not dry. Intact. Turgor - normal. LYMPHATIC: No palpable lymph nodes/no lymphedema. MUSCULOSKELETAL: Normal joints with no swelling. Muscle tone is normal. LABS: White count 8.21, hemoglobin 10.2, hematocrit 32.7, platelets 199. Sodium 137, potassium 3.6, BUN 16, creatinine 1.11, glucose 103, iron 15, TIBC 261, saturations 6, unsaturated iron binding capacity 246, AST 26, ALT 16, alkaline phosphatase 82, total protein 6.3, albumin 2.6. Urine is clear. pH 5.5, 2+ protein, 1+ ketones, 2+ blood, 4+ bacteria. Stool for occult blood is negative. ASSESSMENT: 1. ACUTE URINARY TRACT INFECTION 2. ANEMIA 3. IRON DEFICIENCY 4. FEVER PLAN: 1. Admit to the floor 2. Routine telemetry orders 3. No cardiac enzymes 4. Start IV fluids D5 1/2 NS at 75 cc/hr 5. Zofran 4 mg IV q.6hr p.r.n. for nausea 6. Rocephin 1 gm IV daily 7. Continue home medications 8. Regular diet 9. CBC/CMP daily 10. Tylenol 650 as needed for fever 11. Chest x-ray 12. Will follow closely 13. Regular diet TIME SPENT: More than 70 minutes. MTDD
--- NOTE | 2018-01-20 14:15 | PN ---
DATE OF SERVICE: 01/19/18 SUBJECTIVE: The patient was seen in the emergency room along with ER physician. She is a 72 year old white female being treated for UTI. Started in the emergency room a few days ago with e-coli. The patient has been on Macrobid. The patient's nausea continued along with loss of appetite. She is really feeling weak and tired, also feels hot and cold. She was seen again and the urine still shows 2+ blood and trace esterase with 4+ bacteria. The patient is dehydrated, anemic with low albumin. She will be put on hospital with IV fluids and IV antibiotics. The patient's cardiovascular status is stable. CONDITION: Stable. TIME SPENT: More than 30 minutes. Plan and coordination of the patient's care discussed in the presence of nurse. BLANCA
[2018-01-21] MEDS: SODIUM CHLORIDE 1,000 ML IV SCH (07:19)
[2018-01-21] MEDS: LOVENOX SUBCUT SCH (08:52)
[2018-01-21] MEDS ORDERED: LIDOCAINE HCL 1% SDV IM STA (09:45)
[2018-01-21] MEDS: ROCEPHIN 1 GM in SODIUM CHLORIDE 50 ML IV SCH (10:23)
[2018-01-21] MEDS: ROCEPHIN IM SCH (10:25)
[2018-01-22] MEDS: ROCEPHIN IM SCH ×2 (09:03→10:13)
[2018-01-22] MEDS: ROCEPHIN 1 GM in SODIUM CHLORIDE 50 ML IV SCH (09:04)
[2018-01-22] MEDS: LOVENOX SUBCUT SCH (09:05)
[2018-01-22] MEDS: LIDOCAINE HCL 1% SDV IM SCH (09:05)
[2018-01-22] MEDS: ELIQUIS PO SCH ×2 (12:36→21:22)
--- NOTE | 2018-01-22 21:33 | ED.PDOC ---
General ED Provider: Dr. WOODY BARNEY Chief Complaint: Weakness Stated Complaint: weakness, fatigue and symptoms Time Seen by Physician: 08:50 Mode of Arrival: Walk-In Information Source: Patient Exam Limitations: No limitations Primary Care Provider: KENYATTA POLLARD Referred to ED by: PCP Seen Within Last 72 Hours for Same Complaint By: ED Nursing and Triage Documentation Reviewed and Agree: Yes Reviewed sepsis parameters & appropriate labs ordered?: Yes System Inflammatory Response Syndrome: Not Applicable Sepsis Protocol: For patient's 13 years and over: Temp is 96.8 and below OR 101 and greater Pulse >90 BPM Resp >20/minute Acutely Altered Mental Status Are patient's symptoms suggestive of a new infection, such as: -Pneumonia -Skin, Soft Tissue -Endocarditis -UTI -Bone, Joint Infection -Implantable Device -Acute Abdominal Infection -Wound Infection -Meningitis -Blood Stream Catheter Infection -Unknown System Inflammatory Response Syndrome: Not Applicable Complaint Exam - UTI Female Complaint/Exam Patient Complains of: Denies: Painful urination Symptoms Are: Still present Timing: Constant Initial Severity: Moderate Current Severity: Mild Location of Pain: Reports: None Associated Signs and Symptoms: Reports: Chills CVA Tenderness: No Suprapubic Tenderness: Yes Differential Diagnoses: Bladder Dysfunction, Cystitis, Pyelonephritis, Ureteral Calculus Review of Systems - Review Of Systems Constitutional: Reports: No symptoms, Chills, Malaise, Weakness Eyes: Reports: No symptoms Ears, Nose, Mouth, Throat: Reports: No symptoms Respiratory: Reports: No symptoms Cardiac: Reports: No symptoms GI: Reports: No symptoms : Reports: No symptoms, Burning, Dysuria Musculoskeletal: Reports: No symptoms Skin: Reports: No symptoms Neurological: Reports: No symptoms Endocrine: Reports: No symptoms Hematologic/Lymphatic: Reports: No symptoms All Other Systems: Reviewed and Negative Past Medical History - Past Medical History Previously Healthy: Yes Endocrine: Reports: None Cardiovascular: Reports: None, Other (hyperlipidemia) Respiratory: Reports: None Hematological: Reports: None Gastrointestinal: Reports: None Genitourinary: Reports: None Neuro/Psych: Reports: None Musculoskeletal: Reports: None Cancer: Reports: None Last Menstrual Period: NA - Surgical History General Surgical History: Reports: None - Family History Family History: Reports: None - Social History Smoking Status: Never smoker Hx Substance Use: No Alcohol Screening: Occasionally Physical Exam - Physical Exam Appearance: Well-appearing, Ill-appearing, No pain distress, Well-nourished, Thin Ill-appearing: Mild Pain Distress: None Eyes: BRYCE, EOMI, Conjunctiva clear ENT: Ears normal, Nose normal, Oropharynx normal Respiratory: Airway patent, Breath sounds clear, Breath sounds equal, Respirations nonlabored Cardiovascular: RRR, Pulses normal, No rub, No murmur GI/: Soft, No masses, Bowel sounds normal, No Organomegaly, Tender Musculoskeletal: Normal strength, ROM intact, No edema, No calf tenderness Skin: Warm, Dry, Normal color Neurological: Sensation intact, Motor intact, Reflexes intact, Cranial nerves intact, Alert, Oriented Psychiatric: Affect appropriate, Mood appropriate Critical Care Note - Critical Care Note Total Time (mins): 60 Course - Course Hematology/Chemistry: 01/22/18 04:30 01/22/18 04:30 Orders, Labs, Meds: Lab Review 01/19/18 01/19/18 01/19/18 10:25 10:27 10:27 WBC 8.21 D RBC 4.27 Hgb 10.2 L Hct 32.7 L MCV 76.6 L MCH 23.9 L MCHC 31.2 L RDW Coeff of Horace 16.6 H Plt Count 199 Immature Gran % (Auto) 0.4 Neut % (Auto) 80.0 Lymph % (Auto) 10.8 [place] % (Auto) 8.6 Eos % (Auto) 0.0 Baso % (Auto) 0.2 Immature Gran # (Auto) 0.0 Neut # (Auto) 6.6 Lymph # (Auto) 0.9 [place] # (Auto) 0.7 Eos # (Auto) 0.0 Baso # (Auto) 0.0 Sodium 137 Potassium 3.6 Chloride 101 Carbon Dioxide 25 Anion Gap 14.6 BUN 16 Creatinine 1.11 Estimated GFR (MDRD) 48.00 BUN/Creatinine Ratio 14.41 Glucose 103 Calcium 8.8 Iron 15 L TIBC 261 % Saturation 6 Unsat Iron Binding 246 Transferrin Total Bilirubin 0.7 AST 26 ALT 16 Alkaline Phosphatase 82 Total Protein 6.3 Albumin 2.6 L Globulin 3.7 Albumin/Globulin Ratio 0.70 TSH Free T4 Urine Color Urine Clarity Urine pH Ur Specific [place] Urine Protein Urine Glucose (UA) Urine Ketones Urine Blood Urine Nitrite Urine Bilirubin Urine Urobilinogen Ur Leukocyte Esterase Urine Microscopic RBC Urine Microscopic WBC Ur Squamous Epith Cells Urine Bacteria Stl Occult Blood (IFOB) Stool Occult Blood #2 Stool Occult Blood #3 Hepatitis A IgM Ab Hep Bs Antigen Hep B Core IgM Ab Hep C Ab Signal/Cutoff 01/19/18 01/19/18 01/19/18 10:27 10:27 10:27 WBC RBC Hgb Hct MCV MCH MCHC RDW Coeff of Horace Plt Count Immature Gran % (Auto) Neut % (Auto) Lymph % (Auto) [place] % (Auto) Eos % (Auto) Baso % (Auto) Immature Gran # (Auto) Neut # (Auto) Lymph # (Auto) [place] # (Auto) Eos # (Auto) Baso # (Auto) Sodium Potassium Chloride Carbon Dioxide Anion Gap BUN Creatinine Estimated GFR (MDRD) BUN/Creatinine Ratio Glucose Calcium Iron TIBC % Saturation Unsat Iron Binding Transferrin 220 Total Bilirubin AST ALT Alkaline Phosphatase Total Protein Albumin Globulin Albumin/Globulin Ratio TSH 0.076 L Free T4 1.18 H Urine Color Urine Clarity Urine pH Ur Specific [place] Urine Protein Urine Glucose (UA) Urine Ketones Urine Blood Urine Nitrite Urine Bilirubin Urine Urobilinogen Ur Leukocyte Esterase Urine Microscopic RBC Urine Microscopic WBC Ur Squamous Epith Cells Urine Bacteria Stl Occult Blood (IFOB) Stool Occult Blood #2 Stool Occult Blood #3 Hepatitis A IgM Ab Negative Hep Bs Antigen Negative Hep B Core IgM Ab Negative Hep C Ab Signal/Cutoff < 0.1 01/19/18 01/19/18 10:55 10:55 WBC RBC Hgb Hct MCV MCH MCHC RDW Coeff of Horace Plt Count Immature Gran % (Auto) Neut % (Auto) Lymph % (Auto) [place] % (Auto) Eos % (Auto) Baso % (Auto) Immature Gran # (Auto) Neut # (Auto) Lymph # (Auto) [place] # (Auto) Eos # (Auto) Baso # (Auto) Sodium Potassium Chloride Carbon Dioxide Anion Gap BUN Creatinine Estimated GFR (MDRD) BUN/Creatinine Ratio Glucose Calcium Iron TIBC % Saturation Unsat Iron Binding Transferrin Total Bilirubin AST ALT Alkaline Phosphatase Total Protein Albumin Globulin Albumin/Globulin Ratio TSH Free T4 Urine Color Yellow Urine Clarity Clear Urine pH 5.5 Ur Specific [place] 1.015 Urine Protein 2+ Urine Glucose (UA) Negative Urine Ketones 1+ Urine Blood 2+ Urine Nitrite Negative Urine Bilirubin Negative Urine Urobilinogen 1.0 Ur Leukocyte Esterase Trace Urine Microscopic RBC 5-10 Urine Microscopic WBC 10-20 Ur Squamous Epith Cells Not present Urine Bacteria 4+ Stl Occult Blood (IFOB) Negative Stool Occult Blood #2 No specimen received Stool Occult Blood #3 No specimen received Hepatitis A IgM Ab Hep Bs Antigen Hep B Core IgM Ab Hep C Ab Signal/Cutoff Orders Category Date Time Status ADMIT PATIENT INPATIENT .TO MEDSUR (MONITORED BED) ADMISSION 01/19/18 12: 34 Active EKG-(ED ONLY) Stat CARDIO 01/19/18 10:13 Completed ACTIVITY .BR with BRP CARE 01/19/18 12:31 Completed ACTIVITY .Early Mobilization for VTE Prevention CARE 01/19/18 12:31 Completed INTAKE & OUTPUT Q8HR CARE 01/19/18 12:30 Completed INTAKE & OUTPUT Q8HR CARE 01/19/18 12:31 Completed INTAKE & OUTPUT Q8HR CARE 01/19/18 12:38 Active NPO REMINDER: IMAGING ONCE CARE 01/19/18 12:29 Completed TELEMETRY MONITORING TELE CARE 01/19/18 12:35 Completed VITAL SIGNS Q4HR CARE 01/19/18 12:31 Active SOFT DIET DIETARY 01/19/18 Lunch Ordered IV [ED IV/MEDIPORT/POWERPORT] .ONCE EMERGENCY 01/20/18 06:00 Active CBC W/ AUTO DIFF DAILY@0600 LAB 01/20/18 04:30 Completed CBC W/ AUTO DIFF DAILY@0600 LAB 01/21/18 04:30 Completed CBC W/ AUTO DIFF Stat LAB 01/19/18 10:27 Completed CMP [COMPREHENSIVE METABOLIC PANEL] Stat LAB 01/19/18 10:27 Completed COMPREHENSIVE METABOLIC PANEL DAILY@0600 LAB 01/20/18 04:30 Completed COMPREHENSIVE METABOLIC PANEL DAILY@0600 LAB 01/21/18 04:30 Completed FREE T4 (FREE THYROXINE) Stat LAB 01/19/18 10:27 Completed HEPATITIS PANEL, ACUTE Stat LAB 01/19/18 10:27 Completed IRON AND TIBC Stat LAB 01/19/18 10:25 Completed OCCULT BLOOD, STOOL LAB 01/20/18 11:30 Completed OCCULT BLOOD, STOOL Stat LAB 01/19/18 10:55 Completed THYROID STIMULATING HORMONE Stat LAB 01/19/18 10:27 Completed TRANSFERRIN Stat LAB 01/19/18 10:27 Completed UA [URINALYSIS C & S IF INDICATED] Stat LAB 01/19/18 10:55 Completed URINE CULTURE Routine LAB 01/19/18 10:55 Completed 0.9 % Sodium Chloride [Saline Flush] MEDS 01/19/18 10:13 Discontinued 1 syr IVF PRN PRN Ceftriaxone Sodium [Rocephin] 1 gm MEDS 01/19/18 13:00 Discontinued 0.9 % Sodium Chloride [Sodium Chloride] 50 ml IV DAILY Enoxaparin Sodium [Lovenox] MEDS 01/19/18 13:00 Discontinued 40 mg SUBCUT DAILY Ondansetron HCl/Pf [Zofran 4 mg/2 ml] MEDS 01/19/18 10:16 Discontinued 4 mg IVP ONCE STA Pantoprazole Sodium [Protonix IV] MEDS 01/19/18 10:15 Discontinued 40 mg IVP ONCE STA Sodium Chloride 0.9% [Sodium Chloride] 1,000 ml MEDS 01/19/18 13:00 Discontinued IV 75 mls/hr Sodium Chloride 0.9% [Sodium Chloride] 1,000 ml MEDS 01/19/18 10:15 Discontinued IV BOLUS RESUSCITATION STATUS Routine OTHERS 01/19/18 12:29 Completed RESUSCITATION STATUS Routine OTHERS 01/19/18 12:31 Completed RESUSCITATION STATUS Routine OTHERS 01/19/18 12:[address] ABDOMEN/PELVIS W/WO CONTRAS Stat RADS 01/19/18 12:26 Completed OT CONSULTATION Routine THERAPIES 01/19/18 11:35 Completed PT CONSULT Routine THERAPIES 01/19/18 16:03 Completed Medications Generic Name Dose Route Start Last Admin Trade Name Freq PRN Reason Stop Dose Admin Apixaban 5 mg 01/22/18 12:00 01/22/18 21:22 Eliquis PO 5 mg BID LACI Administration Ceftriaxone Sodium 1 gm 01/22/18 09:30 01/22/18 10:13 Rocephin IM Not Given DAILY LACI Lidocaine HCl 2.1 ml 01/22/18 09:16 01/22/18 09:05 Lidocaine Hcl 1% Sdv IM 2.1 ml DAILY LACI Administration Discontinued Medications Generic Name Dose Route Start Last Admin Trade Name Freq PRN Reason Stop Dose Admin Ceftriaxone Sodium 1 gm 01/21/18 10:00 01/22/18 09:03 Rocephin IM 1 gm DAILY LACI Administration Enoxaparin Sodium 40 mg 01/19/18 13:00 01/22/18 09:05 Lovenox SUBCUT 40 mg DAILY LACI Administration Sodium Chloride 1,000 mls @ 500 mls/hr 01/19/18 10:15 01/19/18 10:48 Sodium Chloride IV 01/19/18 12:14 500 mls/hr BOLUS STA Administration Sodium Chloride 1,000 mls @ 75 mls/hr 01/19/18 13:00 01/21/18 07:19 Sodium Chloride IV 75 mls/hr .[id number] LACI Administration Ceftriaxone Sodium 1 gm/ 50 mls @ 75 mls/hr 01/19/18 13:00 01/22/18 09:04 Sodium Chloride IV Not Given DAILY LACI Lidocaine HCl 2.1 ml 01/21/18 09:45 01/21/18 10:24 Lidocaine Hcl 1% Sdv IM 01/21/18 09:46 2.1 ml ONCE STA Administration Ondansetron HCl 4 mg 01/19/18 10:16 01/19/18 10:49 Zofran 4 Mg/2 Ml IVP 01/19/18 10:17 4 mg ONCE STA Administration Pantoprazole Sodium 40 mg 01/19/18 10:15 01/19/18 10:53 Protonix Iv IVP 01/19/18 10:16 40 mg ONCE STA Administration Sodium Chloride 1 syr 01/19/18 10:13 01/19/18 10:48 Saline Flush IVF 1 syr PRN PRN Administration To flush IV Vital Signs: Temp Pulse Resp BP Pulse Ox 01/19/18 08:33 100.0 F H 95 H 18 150/81 H 94 L Departure - Departure Time of Disposition: 13:45 Disposition: ADMITTED INPATIENT Discharge Problem: UTI (urinary tract infection), bacterial, Anorexia, Anemia, iron deficiency Condition: Fair Pt referred to PMD for follow-up: Yes (nate) IPMP verified?: No Allergies/Adverse Reactions: Allergies No Known Allergies Allergy (Verified 01/19/18 08:32) Home Medications: Ambulatory Orders Aspirin [Aspirin EC] 1 tab PO DAILY 04/01/14 Calcium Carb/Vitamin D3/Vit K1 [Calcium + D Soft Chewable Tab] 1 tab PO DAILY Hydrocodone/Acetaminophen [Lortab 10-325 mg Tablet] 1 tab PO TID 05/10/14 Lansoprazole [Prevacid] 1 tab PO DAILY 05/10/14 Nitrofurantoin Monohyd/M-Cryst [Macrobid 100 mg Capsule] 100 mg PO BID #20 capsule 01/17/18 Simvastatin 40 mg PO BEDTIME 01/17/18 Iron,Carbonyl [Feosol] 45 mg PO DAILY 01/19/18 Disposition Discussed With: Patient, Family (Discussed with Dr Pollard to concurred with admission )
[2018-01-23] MEDS: ROCEPHIN IM SCH (08:20)
[2018-01-23] MEDS: LIDOCAINE HCL 1% SDV IM SCH (08:21)
--- NOTE | 2018-01-23 09:37 | PCM.PROG ---
Attending Provider: ATTENDING PROVIDER: Dr. KENYATTA POLLARD This patient is seen with Rosa Isela Aquino, Nurse Practitioner. DATE OF SERVICE: 01/23/18 SUBJECTIVE: This 72 year old WHITE/ F was hospitalized 01/19/18. The patient is sitting in chair, alert. She is scheduled for upper GI and small bowel follow- through today. Will plan on discharge following tests. REVIEW OF SYSTEMS: CONSTITUTIONAL: Weakness improving. No night sweats. No malaise, lethargy. No fever or chills. HEENT: Eyes: No visual changes. No eye pain. No eye discharge. ENT: No runny nose. No epistaxis. No sinus pain. No odynophagia. No congestion. RESPIRATORY: No cough, no congestion. No hemoptysis. No shortness of breath. CARDIOVASCULAR: No angina symptoms. No CHF symptoms. No atypical chest pain for CAD. No palpitations. No orthopnea.. GASTROINTESTINAL: No abdominal pain. No nausea or vomiting. No diarrhea or constipation. No hematemesis. No hematochezia. GENITOURINARY: No urgency. No frequency. No dysuria. No hematuria. No obstructive symptoms. No discharge. No pain. No significant abnormal bleeding. MUSCULOSKELETAL: No musculoskeletal pain; no joint swelling. NEUROLOGICAL: Awake, alert, oriented to time, place and person. No headache. No neck pain. No syncope. No seizures. No dizziness. PSYCHIATRIC: Not anxious. No depression. No suicidal thoughts. No homicidal thoughts. SKIN: No rash. No lesions. No wounds. ENDOCRINE: No unexplained weight loss. No weight gain. HEMATOLOGIC/LYMPHATIC: No anemia. No purpura. No petechiae. No prolonged or excessive bleeding. No palpable lymph nodes. PHYSICAL EXAMINATION: GENERAL: The patient is awake, alert and oriented, sitting in chair in no distress. VITAL SIGNS: Temperature 97.4 F, Pulse 106, Respiratory Rate 20, BP 146/83, Pulse Ox 94% HEENT: Head normocephalic, atraumatic. Eyes: Extraocular muscles are intact. Pupils are equal, round and reactive to light and accommodation. Ears: No lesions. Nose appeared normal. Throat: No exudate or erythema. NECK: Supple. No JVD, no carotid bruit. No lymphadenopathy or thyromegaly. LUNGS: Clear to auscultation. Percussion note normal. Chest symmetrical. HEART: S1, S2, no S3. No murmurs. No cyanosis or clubbing. No ascites. Pulses: Dorsalis pedis and posterior tibial pulses +1 to +2 both sides. ABDOMEN: Soft. Non-tender. Bowel sounds active. No CVA tenderness. No mass felt. EXTREMITIES: No edema. Full range of motion of all extremities, equal. NEUROLOGIC: No focal deficit. Cranial nerves II through XII are grossly intact. No headache, no double vision or headache. SKIN: Not dry. Intact. Turgor-normal. LYMPHATIC: No palpable lymph nodes/no lymphedema. MUSCULOSKELETAL: Normal joints with no swelling. Muscle tone is normal. LAB REVIEW: 01/23/18 04:45 01/23/18 04:45 01/23/18 04:45: Sodium 144, Potassium 3.5, Chloride 108 H, Carbon Dioxide 26, Anion Gap 13.5, BUN 7, Creatinine 0.94, Estimated GFR (MDRD) 58.00, BUN/ Creatinine Ratio 7.44, Glucose 98, Calcium 9.0, Total Bilirubin 0.3, AST 20, ALT 21, Alkaline Phosphatase 80, Total Protein 6.2, Albumin 2.6 L, Globulin 3.6 , Albumin/Globulin Ratio 0.72 01/23/18 04:45: WBC 7.71, RBC 4.46, Hgb 10.7 L, Hct 34.4 L, MCV 77.1 L, MCH 24.0 L, MCHC 31.1 L, RDW Coeff of Horace 16.8 H, Plt Count 288, Neutrophils % ( Manual) 64.0, Lymphocytes % (Manual) 30.0, Monocytes % (Manual) 5.0, Basophils % (Manual) 1.0, Anisocytosis Not present ASSESSMENT: 1. ACUTE UTI 2. ANEMIA 3. FATIGUE/WEAKNESS 4. EPIGASTRIC PAIN PLAN: 1. Upper Gi with small bowel follow-through. 2. Anticipate discharge home. Plan and coordination of the patient's care discussed in the presence of Office Cashier and nurse. CONDITION: Stable SCRIBED BY: PARVEEN CAMPOS [employer] Sales Representative scribed while in presence of service performed by Dr. Pollard/Rosa Isela Aquino APRN on 01/23/18 ([id number])
[2018-01-23 11:24] VITALS: BP 124/74; TEMP 98
[2018-01-23] MEDS: ELIQUIS PO SCH (12:26)
--- NOTE | 2018-01-23 13:50 | DI ---
EXAM: Single contrast upper GI and small bowel follow-through. History: Hiatal hernia with abdominal pain. Comparison: CT abdomen pelvis 01/19/2018 Technique: Patient was given oral barium and multiple spot films of the esophagus, stomach and duode num were obtained. Small bowel follow-through was then performed and the contrast reached the colon a t 1 hour and 30 minutes. Findings: No esophageal strictures or wall thickening identified. A large hiatal hernia. Gastroesop hageal reflux was present. The duodenum demonstrates no wall thickening. No duodenal diverticuli. T he stomach is unremarkable with no gastric fold thickening and no obvious polyps. Discrete ulceration s are seen within the stomach. The small bowel demonstrates normal course and caliber with no wall thickening. The terminal ileum i s within normal limits. No extravasation of contrast material. No small bowel obstruction. Impression: 1. Large hiatal hernia. 2. Gastroesophageal reflux. 3. Normal small bowel follow-through.
--- NOTE | 2018-01-23 15:42 | CM.DICTOOL ---
ADMISSION: 01/19/18 12:46 DISCHARGE: 01/23/18 DATE OF SERVICE: 01/23/18 FINAL DIAGNOSIS UTI, ACUTE ON CHRONIC - E-COLI ORGANISM EPIGASTRIC PAIN LARGE HIATAL HERNIA DYSPHAGIA ANEMIA ANOREXIA ATRIAL FIBRILLATION (ELIQUIS) MITRAL VALVE PROLAPSE PER ECHO (01/23/18) DYSLIPIDEMIA HTN CHRONIC KIDNEY DISEASE, STAGE 2 GERD DIVERTICULOSIS BY HISTORY LEFT THYROID NODULE DJD SPINE AND SCOLIOSIS (DR. RODRIGUEZ Q 3 MONTHS) BILATERAL TOTAL KNEE ARTHROPLASTY LEFT HIP REPLACEMENT, 08/18 HAMMER TOE SURGERY LAST COLONOSCOPY, 04/15 (DR. MANNING) LAST MAMMOGRAM, 03/18 (DECLINED MAMMOGRAM IN 2016) LAST VITALS Temp Pulse Resp BP Pulse Ox 98 F 104 H 20 124/74 95 01/23/18 10:00 01/23/18 10:00 01/23/18 10:00 01/23/18 10:00 01/23/18 10:00 TAKE THESE MEDICATIONS AT HOME Apixaban (Eliquis) 5 mg PO BID LACI Last Admin: 01/23/18 12:26 Dose: 5 mg Aspirin (Aspirin EC) 81 mg 1 tab PO DAILY Calcium Carb/Vit D3/Vit K1 (Calcium + D Soft Chew) 1 tab PO DAILY Feosol (Iron, Carbonyl) 45 mg PO DAILY Hydrocodone/Acetaminophen (Lortab) 10-325 mg 1 tab PO TID PRN Protonix 40 mg PO AC DAILY Simvastatin 40 mg PO BEDTIME HOME MEDICATION CHANGES Do not take your Prevacid Do not take your Macrobid ALLERGIES No Known Allergies Allergy (Verified 01/19/18 08:32) NEW PRESCRIPTIONS: KEFLEX 500 MG, TAKE ONE CAPSULE BY MOUTH THREE TIMES DAILY FOR 7 DAYS PROTONIX 40 MG, TAKE ONE TABLET BY MOUTH BEFORE BREAKFAST DAILY ELIQUIS 5 MG, TAKE ONE TABLET BY MOUTH TWICE DAILY SMOKING: NONSMOKER DISEASE SPECIFIC EDUCATION: UTI WITH E-COLI ORGANISM ATRIAL FIBRILLATION ELIQUIS MEDICATION GERD HIATAL HERNIA HOME MEDICATIONS AND CHANGES NEW MEDICATIONS FOLLOW UP WITH DR. MANNING, ROOFER ASSISTANT FOLLOW UP IN THE OFFICE LAB REVIEW: 01/23/18 04:45 01/23/18 04:45 01/23/18 04:45: Sodium 144, Potassium 3.5, Chloride 108 H, Carbon Dioxide 26, Anion Gap 13.5, BUN 7, Creatinine 0.94, Estimated GFR (MDRD) 58.00, BUN/ Creatinine Ratio 7.44, Glucose 98, Calcium 9.0, Total Bilirubin 0.3, AST 20, ALT 21, Alkaline Phosphatase 80, Total Protein 6.2, Albumin 2.6 L, Globulin 3.6 , Albumin/Globulin Ratio 0.72 01/23/18 04:45: WBC 7.71, RBC 4.46, Hgb 10.7 L, Hct 34.4 L, MCV 77.1 L, MCH 24.0 L, MCHC 31.1 L, RDW Coeff of Horace 16.8 H, Plt Count 288, Neutrophils % ( Manual) 64.0, Lymphocytes % (Manual) 30.0, Monocytes % (Manual) 5.0, Basophils % (Manual) 1.0, Anisocytosis Not present PLAN: DISCHARGE HOME TODAY RETURN TO SEE DR. POLLARD ON 02/01/18 AT 9:45 A.M. RETURN TO [facility] FOR A PFT ON 02/01/18 AT 9 A.M. KEEP YOUR APPOINTMENT WITH DR. MANNING ON 03/06/18 AT 10:30 A.M. IF AN OPENING BECOMES AVAILABLE FOR AN APPOINTMENT SOONER, DR. MANNING'S OFFICE WILL NOTIFY TAKE THE RADIOLOGY CD PROVIDED TO YOUR APPOINTMENT RESUME YOUR HOME MEDICATIONS PER LIST PROVIDED BY THE NURSING STAFF DO NOT TAKE YOUR MACROBID (NITROFURANTOIN) DO NOT TAKE YOUR PREVACID NEW PRESCRIPTIONS KEFLEX 500 MG, TAKE ONE CAPSULE BY MOUTH THREE TIMES DAILY FOR 7 DAYS PROTONIX 40 MG, TAKE ONE TABLET BY MOUTH BEFORE BREAKFAST DAILY ELIQUIS 5 MG, TAKE ONE TABLET BY MOUTH TWICE DAILY ACTIVITY GET PLENTY OF REST AT HOME. GRADUALLY INCREASE YOUR ACTIVITY LEVEL ACCORDING TO YOUR TOLERATION DIET SOFT FOODS ADVANCE TOLERATED SUMMARY THE PATIENT IS ALERT AND ORIENTED X3. SHE CURRENTLY RESIDES AT HOME WITH HER SPOUSE. SHE HAS BEEN INDEPENDENT WITH ADL'S AND REQUIRES NO DME, HOME HEALTH OR HOMEMAKING SERVICES. SHE DESIRES TO RETURN HOME AT DISCHARGE. THE SKIN TURGOR IS INTACT AND WITHOUT DECUBITUS ULCERS. HYDRATION AND NUTRITIONAL STATUS ARE FAIR. THE PATIENT IS NO LONGER HAVING FREQUENT LOOSE STOOLS. DISCHARGE PLANS FOR TODAY HAVE BEEN DISCUSSED. THE PATIENT IS AGREEABLE. CURRENT CODE STATUS DO NOT RESUSCITATE ADRIANA RAPP APRN KENYATTA POLLARD M.D.
--- NOTE | 2018-01-24 11:12 | ECHO2D ---
Date of Exam: 01/23/18 Ordering Physician: DR. KENYATTA POLLARD Room #: [id number] Reason for Echo: ATRIAL FIBRILLATION M-Mode Normal Adult Results LV Dimensions Normal Adult Results AoV Opening excursions >1.6 >1.6 LVEDD-base- 3.5-5.8 4.4 Ao root dimensions 2.0-3.7 3.3 LVESD-base- 3.1-4.6 L. Atrium dimensions 1.9-3.8 5.2 Post. Wall thickness 0.8-1.1 1.1 IV septum (thickness) 0.7-1.2 1.2 Post. Wall excursion 0.72-1.3 NORMAL Septal motion NORMAL Systolic motion R. Ventricular cavity 1.5-2.0 NORMAL LVEF 60% 52% Paradoxical septal wall motion NORMAL 2-D : NORMAL LEFT VENTRICULAR CONTRACTILITY--MITRAL VALVE PROLAPSE WITH APICAL FOUR CHAMBER VIEW AND LEFT PARASTERNAL LONG AXIS VIEW, NO EFFUSION, NO THROMBUS COLOR FLOW: MILD TO MODERATE AORTIC REGURGITATION M-MODE: MV: MITRAL VALVE PROLAPSE AV: NORMAL TV: NORMAL PV: CHAMBER SIZE: ENLARGED LEFT ATRIAL CAVITY WALL MOTION: NORMAL PERICARDIUM: NORMAL INTERPRETATION: 1. BORDERLINE LEFT VENTRICULAR HYPERTROPHY WITH ENLARGED LEFT ATRIAL CAVITY ( 5.2 CM) 2. NORMAL LEFT VENTRICULAR CONTRACTILITY EJECTION FRACTION 52% 3. MITRAL VALVE PROLAPSE NOTED 4. MILD TO MODERATE MITRAL REGURGITATION MTDD
--- NOTE | 2018-01-24 11:31 | PN ---
DATE OF SERVICE: 01/23/18 SUBJECTIVE: The patient was seen with the Nurse Practitioner. She is doing well. She has no symptoms of acute pyelonephritis. Feeling better. No sweating, no fever or chills and no burning on urination. The patient has huge hiatal hernia that is going to be followed by her rigger third, Dr. Moss. Her other problem is atrial fibrillation which is new onset. The patient will have a PFT echocardiogram before discharge. Eliquis has been given and side effects of Eliquis with GI bleed and intracranial bleed been discussed. Complication of atrial fibrillation been discussed. The patient has been given Literature. CONDITION: Stable. TIME SPENT: More than 30 minutes. Plan and coordination of the patient's care discussed in the presence of nurse. BLANCA
--- NOTE | 2018-01-24 11:33 | PN ---
01/19/18: Level 5 01/20/18: Intermediate 01/21/18: Intermediate 01/22/18: Intermediate 01/23/18: D as in discharge MTDD
--- NOTE | 2018-01-25 14:34 | HOLTER ---
PATIENT INFORMATION AND COMMENTS Attending Physician: DR. KENYATTA POLLARD Indications: WEAKNESS, SHORT OF AIR __ Patient Medications: ELIQUIS, PREVACID, CALCIUM, SIMVASTATIN, MACROBID, IRON __ Pre-procedure Summary: Protocol: Standard Heart Rate Started: 01/23/181545 Minimum: 59 BPM Weight: 180 LBS Ended: 01/24/181545 Maximum: 208 BPM Height: 64" Duration: 24 HOURS Average: 96 BPM _ INTERPRETATIONS/OBSERVATIONS: 1. BASIC RHYTHM: ATRIAL FIBRILLATION, WITH RATE 60 BPM TO 170 BPM, AVERAGE 96 BPM 2. INFREQUENT PVC'S 3. NO ST-T WAVE CHANGES FROM BASELINE 4. NO CORRELATION WITH ACTIVITY LOG MTDD
--- NOTE | 2018-01-26 12:48 | PN ---
DATE OF SERVICE: 01/21/18 SUBJECTIVE: The patient is sitting up eating breakfast. Weakness has improved. Hemoglobin has improved since admission. She is not experiencing any fever in the past 24 hours. REVIEW OF SYSTEMS: CONSTITUTIONAL: Weakness which is improving. Afebrile. No night sweats. No malaise, lethargy. No chills. HEENT: Eyes: No visual changes. No eye pain. No eye discharge. ENT: No runny nose. No epistaxis. No sinus pain. No sore throat. No odynophagia. No congestion. RESPIRATORY: No cough, no congestion. No hemoptysis. No shortness of breath. CARDIOVASCULAR: No angina symptoms. No CHF symptoms. No atypical chest pain for CAD. No palpitations. No orthopnea. GASTROINTESTINAL: No abdominal pain. No nausea or vomiting. No diarrhea or constipation. No hematemesis. No hematochezia. GENITOURINARY: No urgency. No frequency. No dysuria. No hematuria. No obstructive symptoms. No discharge. No pain. No significant abnormal bleeding. MUSCULOSKELETAL: No musculoskeletal pain; no joint swelling. NEUROLOGICAL: No headache. No neck pain. No syncope. No seizures. No dizziness. PSYCHIATRIC: Not anxious. No depression. No suicidal thoughts. No homicidal thoughts. SKIN: No rash. No lesions. No wounds. ENDOCRINE: No unexplained weight loss. No weight gain. HEMATOLOGIC/LYMPHATIC: No anemia. No purpura. No petechiae. No prolonged or excessive bleeding. No palpable lymph nodes. PHYSICAL EXAMINATION: HEENT: Head normocephalic, atraumatic. Eyes: Extraocular muscles are intact. Pupils are equal, round and reactive to light and accommodation. Ears: No lesions. Nose appeared normal. Throat: No exudate or erythema. NECK: Supple. No JVD, no carotid bruit. No lymphadenopathy or thyromegaly. LUNGS: Clear to auscultation. Percussion note normal. Chest symmetrical. HEART: S1, S2, no S3. No murmurs. No cyanosis or clubbing. No ascites. Pulses: Dorsalis pedis and posterior tibial pulses +1 to +2 both sides. ABDOMEN: Soft. Nontender. Bowel sounds active. No CVA tenderness. No mass felt. EXTREMITIES: No edema. Full range of motion of all extremities, equal. NEUROLOGIC: No focal deficit. Cranial nerves II through XII are grossly intact. No headache, no double vision or headache. SKIN: Not dry. Intact. Turgor - normal. LYMPHATIC: No palpable lymph nodes/no lymphedema. MUSCULOSKELETAL: Normal joints with no swelling. Muscle tone is normal. ASSESSMENT: 1. ANEMIA 2. ACUTE URINARY TRACT INFECTION 3. WEIGHT LOSS PLAN: 1. Discontinue her IV as it came out. 2. The patient agrees to do 1 gm of Rocephin IM daily. Vital signs are stable today: temperature 98.5, heart rate 92, respirations 16, BP 133/81, pulse ox 96%. Labs are stable. Hemoglobin 10.1, hematocrit 32.4. Sodium 141, potassium 3.6, BUN 9, creatinine 0.88. She is scheduled for an upper GI with small bowel follow -through on Tuesday. TIME SPENT: More than 30 minutes. Plan and coordination of the patient's care discussed in the presence of nurse. BLANCA
--- NOTE | 2018-01-26 13:16 | DS ---
DATE OF SERVICE: 01/23/18 FINAL DIAGNOSIS: 1. UTI, ACUTE ON CHRONIC - E-COLI ORGANISM 2. EPIGASTRIC PAIN 3. LARGE HIATAL HERNIA 4. DYSPHAGIA 5. ANEMIA 6. ANOREXIA 7. ATRIAL FIBRILLATION (ELIQUIS) 8. MITRAL VALVE PROLAPSE PER ECHO (01/23/18) 9. DYSLIPIDEMIA 10. HTN 11. CHRONIC KIDNEY DISEASE, STAGE 2 12. GERD 13. DIVERTICULOSIS BY HISTORY 14. LEFT THYROID NODULE 15. DJD SPINE AND SCOLIOSIS (DR. RODRIGUEZ Q 3 MONTHS) 16. BILATERAL TOTAL KNEE ARTHROPLASTY 17. LEFT HIP REPLACEMENT, 08/18 18. HAMMER TOE SURGERY DISCHARGE INSTRUCTIONS: 1. RETURN TO SEE DR. POLLARD ON 02/01/18 AT 9:45 A.M. 2. RETURN TO [facility] FOR A PFT ON 02/01/18 AT 9 A.M. 3. KEEP YOUR APPOINTMENT WITH DR. MANNING ON 03/06/18 AT 10:30 A.M. IF AN OPENING BECOMES AVAILABLE FOR AN APPOINTMENT SOONER, DR. MANNING'S OFFICE WILL NOTIFY TAKE THE RADIOLOGY CD PROVIDED TO YOUR APPOINTMENT MEDICATIONS AT DISCHARGE: Apixaban (Eliquis) 5 mg PO BID LACI Aspirin (Aspirin EC) 81 mg 1 tab PO DAILY Calcium Carb/Vit D3/Vit K1 (Calcium + D Soft Chew) 1 tab PO DAILY Feosol (Iron, Carbonyl) 45 mg PO DAILY Hydrocodone/Acetaminophen (Lortab) 10-325 mg 1 tab PO TID PRN Protonix 40 mg PO AC DAILY Simvastatin 40 mg PO BEDTIME HOME MEDICATION CHANGES Do not take your Prevacid Do not take your Macrobid NEW PRESCRIPTIONS: KEFLEX 500 MG, TAKE ONE CAPSULE BY MOUTH THREE TIMES DAILY FOR 7 DAYS PROTONIX 40 MG, TAKE ONE TABLET BY MOUTH BEFORE BREAKFAST DAILY ELIQUIS 5 MG, TAKE ONE TABLET BY MOUTH TWICE DAILY DIET INSTRUCTIONS: SOFT FOODS; ADVANCE TOLERATED ACTIVITY: GET PLENTY OF REST AT HOME. GRADUALLY INCREASE YOUR ACTIVITY LEVEL ACCORDING TO YOUR TOLERATION SMOKING: N/A DISEASE SPECIFIC EDUCATION: UTI WITH E-COLI ORGANISM ATRIAL FIBRILLATION ELIQUIS MEDICATION GERD HIATAL HERNIA HOME MEDICATIONS AND CHANGES NEW MEDICATIONS FOLLOW UP WITH DR. MANNING, MEAT MANAGER FOLLOW UP IN THE OFFICE LAB REVIEW: 01/23/18 04:45: Sodium 144, Potassium 3.5, Chloride 108 H, Carbon Dioxide 26, Anion Gap 13.5, BUN 7, Creatinine 0.94, Estimated GFR (MDRD) 58.00, BUN/ Creatinine Ratio 7.44, Glucose 98, Calcium 9.0, Total Bilirubin 0.3, AST 20, ALT 21, Alkaline Phosphatase 80, Total Protein 6.2, Albumin 2.6 L, Globulin 3.6 , Albumin/Globulin Ratio 0.72 01/23/18 04:45: WBC 7.71, RBC 4.46, Hgb 10.7 L, Hct 34.4 L, MCV 77.1 L, MCH 24.0 L, MCHC 31.1 L, RDW Coeff of Horace 16.8 H, Plt Count 288, Neutrophils % ( Manual) 64.0, Lymphocytes % (Manual) 30.0, Monocytes % (Manual) 5.0, Basophils % (Manual) 1.0, Anisocytosis Not present HOSPITAL COURSE: This is a 72-year-old white female who on 01/17 presented to the emergency room with fever and weakness. She was treated for a UTI with Macrobid 100 mg p.o. daily. She returned on the with worsening weakness, diarrhea, epigastric pain, unable to eat. She was still found to have 4+ bacteria in her urine, nitrite positive. She was running fever. CT of the abdomen showed large hiatal hernia. She was admitted, placed on Rocephin 1 gm IV daily, started on fluids, D5 1/2 NS at 75 cc's/hr. It was also found that she is anemic with her lowest hemoglobin of 8.9. She was started on iron 325 mg p.o. b.i.d. This had subsequently improved. Most likely her anemia was a combination of iron deficiency as well as from infectious process. Today, hemoglobin was 10.7, hematocrit 34.4, white count 7.71. Sodium 144, potassium 3.5, BUN 7, creatinine 0.94. After the first 48 hours, her IV fluids were discontinued. She was not experiencing any more nausea. She was started on Protonix 40 mg p.o. b.i.d and this helped with her epigastric pain. She was scheduled and had an upper GI with small bowel follow-through today prior to discharge which showed a large hiatal hernia but was otherwise normal. On Tuesday, she was on telemetry. She did go into new onset atrial fibrillation for which she was started on Eliquis 5 mg p.o. b.i.d. Her rate has been controlled. Her blood pressure has been good at 140/80. The risks of bleeding associated with atrial fib regarding GI bleed and intracranial bleed were discussed in great detail. The risks associated with atrial fib complications such as stroke were discussed in great detail with the patient. She demonstrates understanding. She has been instructed not to take any NSAIDS along with this medication. This appears to be paroxysmal atrial fib. At time of discharge, she appears to be in normal sinus rhythm. Her TSH is slightly low at 0.076 with a free T4 of 1.18. She has been eating well for the past 48 hours, up and about. We will refer her to her GI specialist, which is Dr. Manning and set up an appointment as an outpatient prior to discharge. We will see her in the office to further evaluate her atrial fib with possible referral to chief of service, Dr. Ponce. She will be discharged home with Keflex 500 mg p.o. t.i.d. for the next 7 days for urinary tract infection as she failed as an outpatient on Macrobid. TIME SPENT: More than 60 minutes. MTDD
== END 2018-01-23 16:05 | disposition home or self-care (01) | DRG 690 ==
LOC: ED 08:29 → MEDSURG B 12:46
PROVIDERS: ADMIT Internal Medicine; ATTEND Internal Medicine
DX: N39.0 Urinary tract infection, site not specified (principal); R10.13 Epigastric pain; K44.9 Diaphragmatic hernia without obstruction or gangrene; R63.0 Anorexia; D50.9 Iron deficiency anemia, unspecified; R53.1 Weakness; K21.9 Gastro-esophageal reflux disease without esophagitis; R13.10 Dysphagia, unspecified; I48.0 Paroxysmal atrial fibrillation; I34.1 Nonrheumatic mitral (valve) prolapse; I10 Essential (primary) hypertension; I12.9 Hypertensive chronic kidney disease with stage 1 through stage 4 chronic kidney disease, or unspecified chronic kidney disease; N18.2 Chronic kidney disease, stage 2 (mild); E04.1 Nontoxic single thyroid nodule; E78.5 Hyperlipidemia, unspecified; M47.9 Spondylosis, unspecified; M41.9 Scoliosis, unspecified; R63.4 Abnormal weight loss; R19.7 Diarrhea, unspecified; R42 Dizziness and giddiness; B96.20 Unspecified Escherichia coli [E. coli] as the cause of diseases classified elsewhere; Z16.11 Resistance to penicillins; Z79.01 Long term (current) use of anticoagulants; Z79.899 Other long term (current) drug therapy; Z87.19 Personal history of other diseases of the digestive system
CPT/HCPCS: 36415; 80053; 80074; 81001; 82272; 83540; 83550; 84439; 84443; 84466; 85007; 85025; 87086; 87186; 93005; 93010; 93227; 96365; 96372; 96375; 97802; 99285

== ENCOUNTER 2018-02-01 08:43 | Outpatient (CLI) | payer OTHER | END 2018-02-01 08:44 | disposition home or self-care (01) | LOC: CAR 08:43 | PROVIDERS: ATTEND Internal Medicine | DX: R05 Cough (principal); R06.02 Shortness of breath ==

== ENCOUNTER 2018-02-07 07:07 | Day surgery (SDC) | payer OTHER ==
[2018-02-07] MEDS ORDERED: LIDOCAINE 1% 20 ML MDV ID STA (07:45)
[2018-02-07] MEDS ORDERED: DIPRIVAN 20 ML VIAL IVP ONE (10:00)
[2018-02-07] MEDS ORDERED: VERSED ONE (10:00)
[2018-02-07] MEDS ORDERED: LIDOCAINE HCL 2% LUER-JET ONE (10:00)
[2018-02-07 13:51] VITALS: BP 112/68; TEMP 98.7
--- NOTE | 2018-02-08 10:36 | OP ---
INDICATIONS FOR PROCEDURE: 72 year old female presents for endoscopy. She has chronic anemia and found to be iron deficient. She is up to date on her colonoscopy and she declined repeat. She presents for endoscopy examination. She does complain dysphagia to solid foods intermittently over the 5 years. She points to her neck area. She had an upper GI recently which showed a large hiatal hernia. MEDICATIONS: SEE ANESTHESIA NOTES. PROCEDURE: ENDOSCOPY, CRE BALLOON DILATION, BIOPSY REPORT: The risks, benefits, alternatives and limitations were discussed in detail with the patient. Informed consent was obtained. After adequate sedation was achieved, the video endoscope was introduced in the posterior pharynx. I intubated the upper esophagus because I could not advance the scope very far. I advanced it only 1 to 2 cm. Here I encountered two esophageal webs. These webs caused significant narrowing non-allowing passage of the scope. I could look down the lumen and see the esophagus distally and it appeared unremarkable other than the two webs. I then placed a CRE balloon dilator a cross the webs. I first dilated from 8-10mm in step aly fashion. Post dilation with the 10mm I could not yet advance the scope beyond the webs. They did not appear disrupted. I then placed a 10-12 CRE balloon dilator across the two webs. I increased the balloon size in step aly fashion once again to maximum dilation of 12mm. Post dilation with the 12mm balloon I was able to advance the scope beyond the two webs. I did see disruption. I advance the scope on down to the second portion of the duodenum I then slowly withdrew. The duodenal mucosa appeared unremarkable as did the duodenal bulb. The antrum body was relatively unremarkable. The scope was retroflexed to look at the cardia and fundus which was unremarkable. It appeared that her entire stomach was in her chest. It looked like the diaphragm was cutting across the antral area. You could see her heart beating against the body of the stomach. Withdrawing the scope back in the esophagus there was a stricture right at the GE junction causing mild lumen narrowing. It did allow passage of the scope across it. I biopsied it for histological review and mostly to disrupt the stricture. Withdrawing the scope back through the esophagus revealed no other abnormalities. The two webs in the upper esophagus were disrupted and the scope easily passed now. The patient tolerated the procedure well with stable vital signs and pulse oximetry throughout. IMPRESSION: 1. Two upper esophageal webs causing significant lumen narrowing, successfully dilated to 12mm 2. Distal esophageal stricture causing mild lumen narrowing, biopsied as described above. 3. Large hiatal hernia with most of the patient's stomach above the diaphragm. 4. Otherwise unremarkable exam RECOMMENDATIONS: 1. Advised that she stick with a soft diet today and in the future make sure she cuts and chews her food into small pieces. 2. Will wait pathology results 3. I will see her back in the office as need. CC: Dr. Joel RIOS
== END 2018-02-07 11:15 | disposition home or self-care (01) ==
LOC: SURG 07:07
PROVIDERS: ATTEND Internal Medicine Gastroenterology
DX: K20.8 Other esophagitis (principal); K22.2 Esophageal obstruction; K44.9 Diaphragmatic hernia without obstruction or gangrene; R13.10 Dysphagia, unspecified; D50.9 Iron deficiency anemia, unspecified

== ENCOUNTER 2018-08-02 10:07 | Outpatient (CLI) | END 2018-08-02 10:08 | disposition home or self-care (01) | LOC: RAD 10:07 | PROVIDERS: ATTEND Internal Medicine | DX: Z12.31 Encounter for screening mammogram for malignant neoplasm of breast (principal) ==

== ENCOUNTER 2019-06-05 06:41 | Day surgery (SDC) | payer OTHER ==
[2019-06-05] MEDS: LIDOCAINE 1% 20 ML MDV ID ONE (07:05)
[2019-06-05] MEDS: LIDOCAINE 1% 2ML (SURGERY ONLY) INJ ONE (07:05)
[2019-06-05] MEDS ORDERED: DIPRIVAN 20 ML VIAL IVP ONE (08:00)
[2019-06-05] MEDS ORDERED: LIDOCAINE 1% 20 ML MDV ID STA (08:08)
[2019-06-05 10:11] VITALS: BP 163/95; TEMP 98.2
--- NOTE | 2019-06-06 09:30 | OP ---
INDICATIONS FOR PROCEDURE: 73 year old female presents for colonoscopy exam. She has a remote history of colon polyps unknown histology. MEDICATIONS: SEE ANESTHESIA NOTES. PROCEDURE: COLONOSCOPY. REPORT: The risks, benefits, alternatives and limitations were discussed in detail with the patient. Informed consent was obtained. After adequate sedation was achieved, a digital rectal exam revealed good tone, no masses. The colonoscope was introduced into the rectum and advanced under direct visual guidance to the cecum. The cecum was identified by the appendiceal orifice and IC valve. I then slowly withdrew the scope in circumferential manner and examined the mucous quite carefully. I looked on the proximal and distal sides of folds and flexures as best as possible. I was able to retroflex the scope in the right colon as well as the left colon to increase visualization. The colonic mucous was unremarkably in it's entire length other than scattered diverticulosis. There was a few diverticuli in the right colon and moderate diverticulosis throughout the left colon. On retroflex view of the anal canal there was non-engorged hemorrhoidal vein. The prep was good. The withdraw time was 8 minutes and 55 seconds. The patient tolerated the procedure well with stable vital signs and pulse oximetry throughout. IMPRESSION: 1. Pandiverticulosis RECOMMENDATIONS: 1. High fiber diet 2. Office visit as needed 3. Consider colonoscopy examination again in 5 years or sooner or if there is any signs or symptoms to indicate otherwise. CC: Dr. Joel RIOS
== END 2019-06-05 09:28 | disposition home or self-care (01) ==
LOC: SURG 06:41
PROVIDERS: ATTEND Internal Medicine Gastroenterology
DX: Z86.010 Personal history of colon polyps (principal)
CPT/HCPCS: 00812; G0105